=== PATIENT | female | born 1985 | race Caucasian/White ===

== ENCOUNTER 2023-07-21 20:37 | Emergency (ER) | payer MEDICAID ==
[2023-07-21] MEDS ORDERED: Ketorolac 60 MG/2 ML SDV IM ONE (21:08)
[2023-07-21 21:19] LABS: BASOPHILS ABSOLUTE AUTO 0.05 K/uL (0.02-0.10); BASOPHILS PERCENT AUTO 0.5 % (0.0-0.5); EOSINOPHILS ABSOLUTE AUTO 0.24 K/uL (0.04-0.40); EOSINOPHILS PERCENT AUTO 2.2 % (1.0-5.0); HEMATOCRIT 37.5 % (37.0-47.0); HEMOGLOBIN 12.2 g/dL (11.5-16.5); LYMPHOCYTES ABSOLUTE AUTO 3.38 K/uL (1.50-4.00); LYMPHOCYTES PERCENT AUTO 31.3 % (20.0-40.0); MEAN CORPUSCULAR HEMOGLOBIN 33.6 pg (27.0-32.0); MEAN CORPUSCULAR HGB CONC 32.5 g/dL (31.0-35.0); MEAN CORPUSCULAR VOLUME 103 fL (76-96); MEAN PLATELET VOLUME 9.5 fL (6.0-10.0); MONOCYTES ABSOLUTE AUTO 0.67 K/uL (0.20-0.80); MONOCYTES PERCENT AUTO 6.2 % (3.0-10.0); NEUTROPHILS ABSOLUTE AUTO 6.45 K/uL (2.00-7.50); NEUTROPHILS PERCENT AUTO 59.8 % (45.0-70.0); PLATELET COUNT,PLT 374 K/uL (150-500); RED BLOOD CELL COUNT 3.63 M/uL (3.80-5.80); RED CELL DISTRIBUTION WIDTH 13.8 % (11.0-16.0); WHITE BLOOD CELL COUNT,WBC 10.8 K/uL (4.0-11.0)
[2023-07-21 21:33] LABS: ANION GAP 15.6 mmol/L (5.0-15.0); CALCIUM 8.6 mg/dL (8.5-10.1); CARBON DIOXIDE,CO2 27.1 mmol/L (21.0-32.0); CREATININE 0.99 mg/dL (0.55-1.02); EST CRCL DRUG DOSING (CG) 63.11 mL/min; POTASSIUM,K 3.7 mmol/L (3.5-5.1)
[2023-07-21] MEDS ORDERED: Ketorolac 60 MG/2 ML SDV ONE (21:34)
[2023-07-21] MEDS ORDERED: predniSONE 10 MG Tab ONE (22:00)
== END 2023-07-21 22:10 | disposition home or self-care (01) ==
LOC: LB.ED 20:37
DX: M25.572 Pain in left ankle and joints of left foot (principal); M25.472 Effusion, left ankle; I10 Essential (primary) hypertension; K21.9 Gastro-esophageal reflux disease without esophagitis; J45.909 Unspecified asthma, uncomplicated; Z86.16 Personal history of COVID-19; Z88.4 Allergy status to anesthetic agent; Z88.5 Allergy status to narcotic agent; Z88.1 Allergy status to other antibiotic agents; Z88.8 Allergy status to other drugs, medicaments and biological substances; Z79.899 Other long term (current) drug therapy
CPT/HCPCS: 36415; 73600-LT; 80048; 84550; 85025; 86140; 96372; 99283; J1885; J7512

== ENCOUNTER 2023-09-12 16:42 | Emergency (ER) | payer MEDICAID ==
[2023-09-12] MEDS ORDERED: Sodium Chloride 0.9% 10 ML Syringe FLUSH PRN (16:48)
[2023-09-12 17:04] LABS: BASOPHILS ABSOLUTE AUTO 0.03 K/uL (0.02-0.10); BASOPHILS PERCENT AUTO 0.3 % (0.0-0.5); EOSINOPHILS ABSOLUTE AUTO 0.13 K/uL (0.04-0.40); EOSINOPHILS PERCENT AUTO 1.3 % (1.0-5.0); HEMATOCRIT 38.6 % (37.0-47.0); LYMPHOCYTES PERCENT AUTO 44.9 % (20.0-40.0); MEAN CORPUSCULAR HEMOGLOBIN 33.2 pg (27.0-32.0); MEAN CORPUSCULAR HGB CONC 33.7 g/dL (31.0-35.0); MEAN CORPUSCULAR VOLUME 99 fL (76-96); MEAN PLATELET VOLUME 9.2 fL (6.0-10.0); MONOCYTES ABSOLUTE AUTO 0.73 K/uL (0.20-0.80); MONOCYTES PERCENT AUTO 7.4 % (3.0-10.0); NEUTROPHILS ABSOLUTE AUTO 4.51 K/uL (2.00-7.50); NEUTROPHILS PERCENT AUTO 46.1 % (45.0-70.0); PLATELET COUNT,PLT 321 K/uL (150-500); RED BLOOD CELL COUNT 3.91 M/uL (3.80-5.80); RED CELL DISTRIBUTION WIDTH 12.4 % (11.0-16.0); WHITE BLOOD CELL COUNT,WBC 9.8 K/uL (4.0-11.0)
[2023-09-12 17:25] LABS: A/G RATIO 0.9 (0.8-2.0); ALBUMIN 3.2 g/dL (3.4-5.0); ANION GAP 13.6 mmol/L (5.0-15.0); BILIRUBIN TOTAL 0.3 mg/dL (0.0-1.0); BUN/CREATININE RATIO 5.2 (6-25); CALCIUM 8.9 mg/dL (8.5-10.1); CARBON DIOXIDE,CO2 27.1 mmol/L (21.0-32.0); CREATININE 0.96 mg/dL (0.55-1.02); EST CRCL DRUG DOSING (CG) 65.08 mL/min; MAGNESIUM 1.9 mg/dL (1.8-2.4); POTASSIUM,K 3.7 mmol/L (3.5-5.1); PROTEIN TOTAL,TP 6.6 g/dL (6.4-8.2)
[2023-09-12 17:44] LABS: APPEARANCE,URINE CLEAR (CLEAR); BILIRUBIN,URINE NEGATIVE (NEGATIVE); COLOR,URINE YELLOW; GLUCOSE,URINE NEGATIVE (NEGATIVE); KETONES,URINE NEGATIVE (NEGATIVE); LEUKOCYTE ESTERASE,URINE NEGATIVE (NEGATIVE); NITRITE,URINE NEGATIVE (NEGATIVE); OCCULT BLOOD,URINE NEGATIVE (NEGATIVE); PROTEIN,URINE NEGATIVE (NEGATIVE); UROBILINOGEN,URINE 0.2 E.U./dL (0.2-1.0)
[2023-09-12] MEDS: Acetaminophen 500 MG Tab PO ONE (17:48)
[2023-09-12 17:49] LABS: AMPHETAMINES SCREEN, URINE NEGATIVE (NEGATIVE); BARBITURATE SCREEN,URINE NEGATIVE (NEGATIVE); BENZODIAZEPINES SCREEN,URINE NEGATIVE (NEGATIVE); METHADONE SCREEN, URINE NEGATIVE (NEGATIVE); METHAMPHETAMINES SCREEN, URINE NEGATIVE (NEGATIVE); OXYCODONE SCREEN,URINE NEGATIVE (NEGATIVE); THC SCREEN,URINE 50 NG/ML NEGATIVE (NEGATIVE)
[2023-09-12] MEDS: Acetaminophen 500 MG Tab ONE (18:05)
== END 2023-09-12 18:07 | disposition home or self-care (01) ==
LOC: LB.ED 16:42
DX: F44.5 Conversion disorder with seizures or convulsions (principal); I10 Essential (primary) hypertension; K21.9 Gastro-esophageal reflux disease without esophagitis; Z88.8 Allergy status to other drugs, medicaments and biological substances; Z79.899 Other long term (current) drug therapy; Z86.16 Personal history of COVID-19; Z88.1 Allergy status to other antibiotic agents; Z88.4 Allergy status to anesthetic agent
CPT/HCPCS: 36415; 51701; 80053; 80307; 81003; 83735; 85025; 99285; A9270-GY; C1758

== ENCOUNTER 2023-10-25 17:21 | Emergency (ER) | payer MEDICAID ==
[2023-10-25] MEDS: Diazepam 5 MG Tab PRN ×2 (17:25→17:30)
[2023-10-25 17:45] LABS: BASOPHILS ABSOLUTE AUTO 0.05 K/uL (0.02-0.10); BASOPHILS PERCENT AUTO 0.4 % (0.0-0.5); EOSINOPHILS ABSOLUTE AUTO 0.26 K/uL (0.04-0.40); EOSINOPHILS PERCENT AUTO 2.1 % (1.0-5.0); HEMOGLOBIN 12.6 g/dL (11.5-16.5); LYMPHOCYTES ABSOLUTE AUTO 4.77 K/uL (1.50-4.00); LYMPHOCYTES PERCENT AUTO 38.8 % (20.0-40.0); MEAN CORPUSCULAR HEMOGLOBIN 33.4 pg (27.0-32.0); MEAN CORPUSCULAR HGB CONC 33.2 g/dL (31.0-35.0); MEAN CORPUSCULAR VOLUME 101 fL (76-96); MEAN PLATELET VOLUME 10.1 fL (6.0-10.0); MONOCYTES ABSOLUTE AUTO 1.13 K/uL (0.20-0.80); MONOCYTES PERCENT AUTO 9.2 % (3.0-10.0); NEUTROPHILS ABSOLUTE AUTO 6.08 K/uL (2.00-7.50); NEUTROPHILS PERCENT AUTO 49.5 % (45.0-70.0); PLATELET COUNT,PLT 345 K/uL (150-500); RED BLOOD CELL COUNT 3.77 M/uL (3.80-5.80); RED CELL DISTRIBUTION WIDTH 13.4 % (11.0-16.0); WHITE BLOOD CELL COUNT,WBC 12.3 K/uL (4.0-11.0)
[2023-10-25] MEDS ORDERED: Diazepam 5 MG Tab PO ONE (17:45)
[2023-10-25] MEDS ORDERED: Sodium Chloride 0.9% 1,000 ML IV ONE (17:49)
[2023-10-25 18:04] LABS: ALANINE AMINOTRANSFERASE,ALT 34 U/L (12-78); ALBUMIN 3.4 g/dL (3.4-5.0); ALKALINE PHOSPHATASE 102 U/L (46-116); ANION GAP 18.1 mmol/L (5.0-15.0); ASPARTATE AMNIOTRANSFERASE,AST 40 U/L (15-37); BILIRUBIN TOTAL 0.2 mg/dL (0.0-1.0); BLOOD UREA NITROGEN,BUN 4 mg/dL (8-26); BUN/CREATININE RATIO 3.6 (6-25); CALCIUM 8.7 mg/dL (8.5-10.1); CARBON DIOXIDE,CO2 20.7 mmol/L (21.0-32.0); CHLORIDE,CL 102 mmol/L (98-107); CREATININE 1.11 mg/dL (0.55-1.02); ESTIMATED GFR 65 mL/min (>60); GLUCOSE RANDOM 98 mg/dL (74-100); POTASSIUM,K 3.8 mmol/L (3.5-5.1); PROTEIN TOTAL,TP 6.7 g/dL (6.4-8.2); SODIUM,NA 137 mmol/L (136-145)
[2023-10-25 18:11] LABS: APPEARANCE,URINE SLIGHTLY CLOUDY (CLEAR); BILIRUBIN,URINE NEGATIVE (NEGATIVE); COLOR,URINE YELLOW; GLUCOSE,URINE NEGATIVE (NEGATIVE); KETONES,URINE NEGATIVE (NEGATIVE); LEUKOCYTE ESTERASE,URINE SMALL (NEGATIVE); NITRITE,URINE NEGATIVE (NEGATIVE); OCCULT BLOOD,URINE NEGATIVE (NEGATIVE); PH,URINE 6.5 (5.0-8.0); PROTEIN,URINE NEGATIVE (NEGATIVE); UROBILINOGEN,URINE 0.2 E.U./dL (0.2-1.0)
[2023-10-25 18:16] LABS: RBC,URINE NOT SEEN /HPF
[2023-10-25 18:17] LABS: AMPHETAMINES SCREEN, URINE NEGATIVE (NEGATIVE); BACTERIA,URINE MANY /HPF; BARBITURATE SCREEN,URINE NEGATIVE (NEGATIVE); BENZODIAZEPINES SCREEN,URINE NEGATIVE (NEGATIVE); METHADONE SCREEN, URINE NEGATIVE (NEGATIVE); METHAMPHETAMINES SCREEN, URINE NEGATIVE (NEGATIVE); OXYCODONE SCREEN,URINE NEGATIVE (NEGATIVE); SQUAMOUS EPITHELIAL CELLS,UR FEW /HPF; THC SCREEN,URINE 50 NG/ML NEGATIVE (NEGATIVE); WBC CLUMPS,URINE OCCASIONAL /HPF
[2023-10-25] MEDS ORDERED: Diazepam 5 MG Tab PRN (18:40)
[2023-10-25] MEDS ORDERED: Ciprofloxacin 250 MG Tab ONE (18:45)
== END 2023-10-25 18:55 | disposition home or self-care (01) ==
LOC: LB.ED 17:21
DX: F44.4 Conversion disorder with motor symptom or deficit (principal); I10 Essential (primary) hypertension; K21.9 Gastro-esophageal reflux disease without esophagitis; Z88.5 Allergy status to narcotic agent; Z88.8 Allergy status to other drugs, medicaments and biological substances; Z79.899 Other long term (current) drug therapy; Z86.16 Personal history of COVID-19
CPT/HCPCS: 36415; 80053; 80307; 81001; 85025; 96360; 99284-25; A9270-GY; C1758; J7030

== ENCOUNTER 2023-10-27 14:36 | Emergency (ER) | payer MEDICAID ==
[~2023-10-27 14:36] MED LIST: Sodium Chloride 0.9% 10 ML Syringe FLUSH PRN
[2023-10-27] MEDS: diazePAM 5 MG/ML MDV IM ONE ×2 (14:38→14:56)
[2023-10-27 15:18] LABS: BASOPHILS ABSOLUTE AUTO 0.03 K/uL (0.02-0.10); BASOPHILS PERCENT AUTO 0.3 % (0.0-0.5); EOSINOPHILS ABSOLUTE AUTO 0.16 K/uL (0.04-0.40); EOSINOPHILS PERCENT AUTO 1.6 % (1.0-5.0); HEMATOCRIT 35.3 % (37.0-47.0); HEMOGLOBIN 11.8 g/dL (11.5-16.5); LYMPHOCYTES PERCENT AUTO 43.2 % (20.0-40.0); MEAN CORPUSCULAR HEMOGLOBIN 33.8 pg (27.0-32.0); MEAN CORPUSCULAR HGB CONC 33.4 g/dL (31.0-35.0); MEAN CORPUSCULAR VOLUME 101 fL (76-96); MEAN PLATELET VOLUME 9.9 fL (6.0-10.0); MONOCYTES ABSOLUTE AUTO 0.83 K/uL (0.20-0.80); MONOCYTES PERCENT AUTO 8.5 % (3.0-10.0); NEUTROPHILS PERCENT AUTO 46.4 % (45.0-70.0); PLATELET COUNT,PLT 323 K/uL (150-500); RED BLOOD CELL COUNT 3.49 M/uL (3.80-5.80); RED CELL DISTRIBUTION WIDTH 13.3 % (11.0-16.0); WHITE BLOOD CELL COUNT,WBC 9.7 K/uL (4.0-11.0)
[2023-10-27 15:38] LABS: ALANINE AMINOTRANSFERASE,ALT 30 U/L (12-78); ALBUMIN 3.2 g/dL (3.4-5.0); ALKALINE PHOSPHATASE 90 U/L (46-116); ASPARTATE AMNIOTRANSFERASE,AST 34 U/L (15-37); BILIRUBIN TOTAL 0.3 mg/dL (0.0-1.0); BLOOD UREA NITROGEN,BUN 2 mg/dL (8-26); BUN/CREATININE RATIO 2.2 (6-25); CALCIUM 8.6 mg/dL (8.5-10.1); CARBON DIOXIDE,CO2 21.5 mmol/L (21.0-32.0); CHLORIDE,CL 101 mmol/L (98-107); CREATININE 0.93 mg/dL (0.55-1.02); ESTIMATED GFR 80 mL/min (>60); GLUCOSE RANDOM 70 mg/dL (74-100); POTASSIUM,K 3.5 mmol/L (3.5-5.1); PROTEIN TOTAL,TP 6.5 g/dL (6.4-8.2); SODIUM,NA 136 mmol/L (136-145)
[2023-10-27] MEDS ORDERED: LORazepam 2 MG/ML SDV IVPUSH PRN (15:46)
[2023-10-27] MEDS ORDERED: LORazepam 2 MG/ML SDV ONE (16:00)
[2023-10-27] MEDS ORDERED: LORazepam 2 MG/ML SDV IVPUSH ONE (16:00)
[2023-10-27] MEDS ORDERED: SODIUM CHLORIDE 0.9% IV ONE (16:15)
[2023-10-27] MEDS ORDERED: LEVETIRACETAM IV ONE (16:15)
[2023-10-27] MEDS ORDERED: levETIRAcetam 4,500 MG in Sodium Chloride 0.9% 100 ML IV ONE (16:15)
[2023-10-27] MEDS ORDERED: LORazepam 1 MG Tab ONE ×2 (23:00→23:06)
== END 2023-10-27 23:28 | disposition home or self-care (01) ==
LOC: LB.ED 14:36
DX: R56.9 Unspecified convulsions (principal); K21.9 Gastro-esophageal reflux disease without esophagitis; J45.909 Unspecified asthma, uncomplicated; F17.210 Nicotine dependence, cigarettes, uncomplicated; Z86.16 Personal history of COVID-19; Z79.899 Other long term (current) drug therapy; Z88.8 Allergy status to other drugs, medicaments and biological substances; Z88.1 Allergy status to other antibiotic agents; Z88.4 Allergy status to anesthetic agent
CPT/HCPCS: 36415; 70450; 80053; 80307; 85025; 96365; 96372; 96375; 99285-25; A9270-GY; J1953; J2060; J3360; J3490

== ENCOUNTER 2023-10-28 16:51 | Emergency (ER) | payer MEDICAID ==
[2023-10-28] MEDS: Acetaminophen 325 MG Tab PO ONE (17:40)
[2023-10-28] MEDS: Ondansetron 4 MG Tab.DIS PO ONE (17:41)
[2023-10-28 17:47] LABS: AMPHETAMINES SCREEN, URINE POSITIVE (NEGATIVE); BENZODIAZEPINES SCREEN,URINE POSITIVE (NEGATIVE); METHAMPHETAMINES SCREEN, URINE NEGATIVE (NEGATIVE)
[2023-10-28 17:48] LABS: BARBITURATE SCREEN,URINE NEGATIVE (NEGATIVE); BASOPHILS ABSOLUTE AUTO 0.04 K/uL (0.02-0.10); BASOPHILS PERCENT AUTO 0.4 % (0.0-0.5); EOSINOPHILS ABSOLUTE AUTO 0.06 K/uL (0.04-0.40); EOSINOPHILS PERCENT AUTO 0.6 % (1.0-5.0); HEMATOCRIT 35.7 % (37.0-47.0); HEMOGLOBIN 11.9 g/dL (11.5-16.5); LYMPHOCYTES ABSOLUTE AUTO 3.86 K/uL (1.50-4.00); LYMPHOCYTES PERCENT AUTO 37.9 % (20.0-40.0); MEAN CORPUSCULAR HEMOGLOBIN 33.2 pg (27.0-32.0); MEAN CORPUSCULAR HGB CONC 33.3 g/dL (31.0-35.0); MEAN CORPUSCULAR VOLUME 100 fL (76-96); MEAN PLATELET VOLUME 9.8 fL (6.0-10.0); METHADONE SCREEN, URINE NEGATIVE (NEGATIVE); MONOCYTES ABSOLUTE AUTO 0.72 K/uL (0.20-0.80); MONOCYTES PERCENT AUTO 7.1 % (3.0-10.0); NEUTROPHILS ABSOLUTE AUTO 5.51 K/uL (2.00-7.50); OXYCODONE SCREEN,URINE NEGATIVE (NEGATIVE); PLATELET COUNT,PLT 326 K/uL (150-500); RED BLOOD CELL COUNT 3.58 M/uL (3.80-5.80); RED CELL DISTRIBUTION WIDTH 13.3 % (11.0-16.0); THC SCREEN,URINE 50 NG/ML NEGATIVE (NEGATIVE); WHITE BLOOD CELL COUNT,WBC 10.2 K/uL (4.0-11.0)
[2023-10-28] MEDS: Acetaminophen 325 MG Tab ONE (17:53)
[2023-10-28] MEDS: Ondansetron 4 MG Tab.DIS ONE (17:54)
[2023-10-28 18:01] LABS: MAGNESIUM 1.6 mg/dL (1.8-2.4); PHOSPHORUS 2.4 mg/dL (2.5-4.9)
[2023-10-28 18:08] LABS: ALBUMIN 3.2 g/dL (3.4-5.0); ANION GAP 15.8 mmol/L (5.0-15.0); BILIRUBIN TOTAL 0.5 mg/dL (0.0-1.0); BUN/CREATININE RATIO 5.7 (6-25); CALCIUM 8.3 mg/dL (8.5-10.1); CARBON DIOXIDE,CO2 23.8 mmol/L (21.0-32.0); CREATININE 1.05 mg/dL (0.55-1.02); EST CRCL DRUG DOSING (CG) 59.5 mL/min; POTASSIUM,K 3.6 mmol/L (3.5-5.1); PROTEIN TOTAL,TP 6.5 g/dL (6.4-8.2)
== END 2023-10-28 19:20 | disposition left against medical advice (07) ==
LOC: LB.ED 16:51
DX: F44.5 Conversion disorder with seizures or convulsions (principal); K21.9 Gastro-esophageal reflux disease without esophagitis; J45.909 Unspecified asthma, uncomplicated; Z79.899 Other long term (current) drug therapy; Z88.1 Allergy status to other antibiotic agents; Z88.8 Allergy status to other drugs, medicaments and biological substances; Z88.7 Allergy status to serum and vaccine
CPT/HCPCS: 36415; 80053; 80307; 83735; 84100; 85025; 99284; A9270-GY; Q0162

== ENCOUNTER 2023-11-26 20:35 | Emergency (ER) | payer MEDICAID ==
[2023-11-26] MEDS ORDERED: Sodium Chloride 0.9% 10 ML Syringe FLUSH PRN (20:48)
[2023-11-26] MEDS: LORazepam 2 MG/ML SDV IVPUSH ONE (21:31)
[2023-11-26] MEDS: levETIRAcetam 500 MG in Sodium Chloride 0.9% 100 ML IV ONE (21:34)
[2023-11-26 21:39] LABS: HEMATOCRIT 36.4 % (37.0-47.0); HEMOGLOBIN 12.2 g/dL (11.5-16.5); MEAN CORPUSCULAR HEMOGLOBIN 33.2 pg (27.0-32.0); MEAN CORPUSCULAR HGB CONC 33.5 g/dL (31.0-35.0); MEAN PLATELET VOLUME 9.7 fL (6.0-10.0); RED BLOOD CELL COUNT 3.67 M/uL (3.80-5.80); RED CELL DISTRIBUTION WIDTH 12.9 % (11.0-16.0); WHITE BLOOD CELL COUNT,WBC 9.5 K/uL (4.0-11.0)
[2023-11-26 21:53] LABS: A/G RATIO 1.1 (0.8-2.0); ALBUMIN 3.3 g/dL (3.4-5.0); ANION GAP 11.4 mmol/L (5.0-15.0); BILIRUBIN TOTAL 0.5 mg/dL (0.0-1.0); BUN/CREATININE RATIO 4.9 (6-25); CALCIUM 8.1 mg/dL (8.5-10.1); CARBON DIOXIDE,CO2 27.3 mmol/L (21.0-32.0); CREATININE 0.82 mg/dL (0.55-1.02); MAGNESIUM 1.8 mg/dL (1.8-2.4); PHOSPHORUS 3.1 mg/dL (2.5-4.9); PROTEIN TOTAL,TP 6.4 g/dL (6.4-8.2)
[2023-11-26] MEDS: Sodium Chloride 0.9% 1,000 ML IV SCH (21:55)
[2023-11-26] MEDS: levETIRAcetam 500 MG/5 ML SDV ONE (21:56)
[2023-11-26] MEDS: LORazepam 2 MG/ML SDV ONE (21:56)
[2023-11-26 22:05] LABS: EST CRCL DRUG DOSING (CG) 76.19 mL/min
[2023-11-26 22:07] LABS: POTASSIUM,K 2.7 mmol/L (3.5-5.1)
[2023-11-26] MEDS: Potassium Chloride Riders 10 MEQ in Premix Bag 1 BAG IV ONE (23:14)
[2023-11-26 23:19] LABS: AMPHETAMINES SCREEN, URINE NEGATIVE (NEGATIVE); BARBITURATE SCREEN,URINE NEGATIVE (NEGATIVE); BENZODIAZEPINES SCREEN,URINE NEGATIVE (NEGATIVE); METHADONE SCREEN, URINE NEGATIVE (NEGATIVE); METHAMPHETAMINES SCREEN, URINE NEGATIVE (NEGATIVE); OXYCODONE SCREEN,URINE NEGATIVE (NEGATIVE); THC SCREEN,URINE 50 NG/ML NEGATIVE (NEGATIVE)
[2023-11-26] MEDS: Potassium Chloride Riders 50 ML ONE (23:45)
[2023-11-27] MEDS: NS + KCl 20mEq/L 1,000 ML IV SCH (00:16)
[2023-11-27 07:54] LABS: ANION GAP 8.4 mmol/L (5.0-15.0); BUN/CREATININE RATIO 3.9 (6-25); CALCIUM 7.5 mg/dL (8.5-10.1); CARBON DIOXIDE,CO2 26.7 mmol/L (21.0-32.0); CREATININE 0.76 mg/dL (0.55-1.02); EST CRCL DRUG DOSING (CG) 82.21 mL/min; POTASSIUM,K 4.1 mmol/L (3.5-5.1)
== END 2023-11-27 08:55 | disposition home or self-care (01) ==
LOC: LB.ED 20:45
DX: G40.909 Epilepsy, unspecified, not intractable, without status epilepticus (principal); E87.6 Hypokalemia; I10 Essential (primary) hypertension; K21.9 Gastro-esophageal reflux disease without esophagitis; J45.909 Unspecified asthma, uncomplicated; Z86.16 Personal history of COVID-19; Z79.899 Other long term (current) drug therapy; Z88.1 Allergy status to other antibiotic agents; Z88.8 Allergy status to other drugs, medicaments and biological substances
CPT/HCPCS: 36415; 70450; 80048; 80053; 80307; 83735; 84100; 85027; 96361; 96365; 96366; 96367; 96375; 99284; 99284-25; A0425; A0429; J1953; J2060; J3480; J3490; J7030

== ENCOUNTER 2023-12-12 18:19 | Emergency (ER) | payer MEDICAID ==
[2023-12-12] MEDS: Ondansetron 4 MG Tab.DIS PO PRN (18:28)
[2023-12-12] MEDS ORDERED: Sodium Chloride 0.9% 10 ML Syringe FLUSH PRN (18:33)
[2023-12-12] MEDS: Sodium Chloride 0.9% 1,000 ML IV SCH (18:50)
[2023-12-12 19:03] LABS: HEMATOCRIT 40.2 % (37.0-47.0); HEMOGLOBIN 13.6 g/dL (11.5-16.5); MEAN CORPUSCULAR HEMOGLOBIN 33.7 pg (27.0-32.0); MEAN CORPUSCULAR HGB CONC 33.8 g/dL (31.0-35.0); RED BLOOD CELL COUNT 4.04 M/uL (3.80-5.80); RED CELL DISTRIBUTION WIDTH 12.5 % (11.0-16.0)
[2023-12-12] MEDS: levETIRAcetam 1,000 MG in Sodium Chloride 0.9% 100 ML IV ONE (19:11)
[2023-12-12 19:12] LABS: ALBUMIN 3.6 g/dL (3.4-5.0); ANION GAP 14.9 mmol/L (5.0-15.0); BILIRUBIN TOTAL 0.3 mg/dL (0.0-1.0); CALCIUM 8.9 mg/dL (8.5-10.1); CARBON DIOXIDE,CO2 25.7 mmol/L (21.0-32.0); CREATININE 0.78 mg/dL (0.55-1.02); EST CRCL DRUG DOSING (CG) 80.1 mL/min; MAGNESIUM 1.9 mg/dL (1.8-2.4); PHOSPHORUS 2.3 mg/dL (2.5-4.9); POTASSIUM,K 3.6 mmol/L (3.5-5.1); PROTEIN TOTAL,TP 7.2 g/dL (6.4-8.2)
[2023-12-12 19:20] LABS: APPEARANCE,URINE CLEAR (CLEAR); BILIRUBIN,URINE SMALL (NEGATIVE); COLOR,URINE YELLOW; GLUCOSE,URINE NEGATIVE (NEGATIVE); KETONES,URINE NEGATIVE (NEGATIVE); LEUKOCYTE ESTERASE,URINE NEGATIVE (NEGATIVE); NITRITE,URINE NEGATIVE (NEGATIVE); OCCULT BLOOD,URINE NEGATIVE (NEGATIVE); PROTEIN,URINE TRACE mg/dL (NEGATIVE); UROBILINOGEN,URINE 0.2 E.U./dL (0.2-1.0)
[2023-12-12 19:25] LABS: AMPHETAMINES SCREEN, URINE NEGATIVE (NEGATIVE); BARBITURATE SCREEN,URINE NEGATIVE (NEGATIVE); BENZODIAZEPINES SCREEN,URINE POSITIVE (NEGATIVE); EPITHELIAL CELLS,URINE MODERATE /HPF; METHAMPHETAMINES SCREEN, URINE NEGATIVE (NEGATIVE); RBC,URINE 0-5 /HPF; WBC,URINE NOT SEEN /HPF
[2023-12-12 19:26] LABS: METHADONE SCREEN, URINE NEGATIVE (NEGATIVE); OXYCODONE SCREEN,URINE NEGATIVE (NEGATIVE); THC SCREEN,URINE 50 NG/ML NEGATIVE (NEGATIVE)
[2023-12-12] MEDS: Morphine 4 MG/ML VIAL IVPUSH ONE (19:33)
[2023-12-12] MEDS: LORazepam 2 MG/ML SDV IVPUSH ONE (19:34)
[2023-12-12] MEDS: Lactated Ringers 1,000 ML IV SCH (20:21)
[2023-12-12] MEDS ORDERED: Ondansetron 4 MG Tab.DIS ONE (22:00)
== END 2023-12-12 22:24 | disposition home or self-care (01) ==
LOC: LB.ED 18:19
DX: R10.9 Unspecified abdominal pain (principal); R56.9 Unspecified convulsions; I10 Essential (primary) hypertension; J45.909 Unspecified asthma, uncomplicated; K21.9 Gastro-esophageal reflux disease without esophagitis; Z86.16 Personal history of COVID-19; Z79.899 Other long term (current) drug therapy; Z88.8 Allergy status to other drugs, medicaments and biological substances; Z88.4 Allergy status to anesthetic agent
CPT/HCPCS: 36415; 74176; 80053; 80307; 81001; 83735; 84100; 85027; 96361; 96365; 96375; 99284; 99284-25; A0425; A0429; J1953; J2060; J2270; J3490; J7030; J7120; Q0162

== ENCOUNTER 2023-12-16 21:35 | Emergency (ER) | payer MEDICAID ==
[2023-12-16] MEDS: levETIRAcetam 1,000 MG in Sodium Chloride 0.9% 100 ML IV ONE (22:13)
[2023-12-16] MEDS: Sodium Chloride 0.9% 1,000 ML IV SCH (22:38)
[2023-12-16] MEDS: Prochlorperazine 10 MG/2 ML SDV IVPUSH ONE (23:20)
[2023-12-16 23:46] LABS: HEMATOCRIT 41.7 % (37.0-47.0); HEMOGLOBIN 13.5 g/dL (11.5-16.5); MEAN CORPUSCULAR HEMOGLOBIN 34.2 pg (27.0-32.0); MEAN CORPUSCULAR HGB CONC 32.4 g/dL (31.0-35.0); MEAN PLATELET VOLUME 10.5 fL (6.0-10.0); RED BLOOD CELL COUNT 3.95 M/uL (3.80-5.80); RED CELL DISTRIBUTION WIDTH 12.4 % (11.0-16.0); WHITE BLOOD CELL COUNT,WBC 10.8 K/uL (4.0-11.0)
[2023-12-16 23:52] LABS: AMPHETAMINES SCREEN, URINE NEGATIVE (NEGATIVE); METHAMPHETAMINES SCREEN, URINE NEGATIVE (NEGATIVE)
[2023-12-16 23:53] LABS: BARBITURATE SCREEN,URINE NEGATIVE (NEGATIVE); BENZODIAZEPINES SCREEN,URINE NEGATIVE (NEGATIVE); METHADONE SCREEN, URINE NEGATIVE (NEGATIVE); OXYCODONE SCREEN,URINE NEGATIVE (NEGATIVE); THC SCREEN,URINE 50 NG/ML NEGATIVE (NEGATIVE)
[2023-12-16 23:59] LABS: A/G RATIO 1.1 (0.8-2.0); ALBUMIN 3.5 g/dL (3.4-5.0); BILIRUBIN TOTAL 0.2 mg/dL (0.0-1.0); BUN/CREATININE RATIO 2.9 (6-25); CALCIUM 8.2 mg/dL (8.5-10.1); CARBON DIOXIDE,CO2 26.4 mmol/L (21.0-32.0); CREATININE 0.69 mg/dL (0.55-1.02); EST CRCL DRUG DOSING (CG) 90.55 mL/min; POTASSIUM,K 3.4 mmol/L (3.5-5.1); PROTEIN TOTAL,TP 6.8 g/dL (6.4-8.2)
[2023-12-17] MEDS: NS + KCl 20mEq/L 1,000 ML IV SCH (00:38)
[2023-12-17] MEDS: Diazepam 5 MG Tab PO ONE (00:54)
[2023-12-17] MEDS: Diazepam 5 MG Tab ONE (02:15)
== END 2023-12-17 08:07 | disposition home or self-care (01) ==
LOC: SUPCPDRO 21:35 → LB.ED 21:35
DX: G40.909 Epilepsy, unspecified, not intractable, without status epilepticus (principal); I10 Essential (primary) hypertension; J45.909 Unspecified asthma, uncomplicated; K21.9 Gastro-esophageal reflux disease without esophagitis; Z86.16 Personal history of COVID-19; Z79.899 Other long term (current) drug therapy; Z88.1 Allergy status to other antibiotic agents; Z88.8 Allergy status to other drugs, medicaments and biological substances
CPT/HCPCS: 36415; 80053; 80307; 85027; 96361; 96365; 96366; 96375; 99284; A0425; A0429; A9270; J0780; J1953; J3480; J3490; J7030

== ENCOUNTER 2023-12-28 14:52 | Emergency (ER) | payer MEDICAID ==
[2023-12-28] MEDS ORDERED: Sodium Chloride 0.9% 1,000 ML IV SCH (15:30)
== END 2023-12-28 15:31 | disposition left against medical advice (07) ==
LOC: LB.ED 14:52
DX: R56.9 Unspecified convulsions (principal); J45.909 Unspecified asthma, uncomplicated; K21.9 Gastro-esophageal reflux disease without esophagitis; Z79.899 Other long term (current) drug therapy
CPT/HCPCS: 99284; A0425; A0429

== ENCOUNTER 2024-01-23 22:49 | Emergency (ER) | payer MEDICAID ==
[2024-01-23] MEDS ORDERED: Sodium Chloride 0.9% 10 ML Syringe FLUSH PRN (23:04)
[2024-01-23] MEDS: Ondansetron 4 MG Tab.DIS PO ONE (23:17)
[2024-01-23] MEDS: Prochlorperazine 10 MG/2 ML SDV IVPUSH ONE (23:25)
[2024-01-23 23:32] LABS: HEMATOCRIT 38.2 % (37.0-47.0); HEMOGLOBIN 13.1 g/dL (11.5-16.5); MEAN CORPUSCULAR HEMOGLOBIN 33.3 pg (27.0-32.0); MEAN CORPUSCULAR HGB CONC 34.3 g/dL (31.0-35.0); MEAN PLATELET VOLUME 9.7 fL (6.0-10.0); RED BLOOD CELL COUNT 3.93 M/uL (3.80-5.80); RED CELL DISTRIBUTION WIDTH 12.8 % (11.0-16.0); WHITE BLOOD CELL COUNT,WBC 17.5 K/uL (4.0-11.0)
[2024-01-23] MEDS: Sodium Chloride 0.9% 1,000 ML IV SCH (23:32)
[2024-01-23 23:51] LABS: A/G RATIO 1.3 (0.8-2.0); ALBUMIN 3.8 g/dL (3.4-5.0); ANION GAP 14.9 mmol/L (5.0-15.0); BILIRUBIN TOTAL 0.3 mg/dL (0.0-1.0); BUN/CREATININE RATIO 6.7 (6-25); CALCIUM 8.6 mg/dL (8.5-10.1); CARBON DIOXIDE,CO2 24.7 mmol/L (21.0-32.0); CREATININE 0.75 mg/dL (0.55-1.02); EST CRCL DRUG DOSING (CG) 83.31 mL/min; MAGNESIUM 1.9 mg/dL (1.8-2.4); POTASSIUM,K 3.6 mmol/L (3.5-5.1); PROTEIN TOTAL,TP 6.8 g/dL (6.4-8.2)
[2024-01-24] MEDS: Lactated Ringers 1,000 ML IV SCH (01:05)
[2024-01-24 07:23] LABS: ANION GAP 9.3 mmol/L (5.0-15.0); CALCIUM 8.3 mg/dL (8.5-10.1); CARBON DIOXIDE,CO2 26.9 mmol/L (21.0-32.0); CREATININE 0.51 mg/dL (0.55-1.02); EST CRCL DRUG DOSING (CG) 122.51 mL/min; POTASSIUM,K 4.2 mmol/L (3.5-5.1)
[2024-01-24 07:32] LABS: BUN/CREATININE RATIO 5.9 (6-25)
[2024-01-24 07:40] LABS: HEMATOCRIT 40.1 % (37.0-47.0); HEMOGLOBIN 13.6 g/dL (11.5-16.5); MEAN CORPUSCULAR HEMOGLOBIN 33.3 pg (27.0-32.0); MEAN CORPUSCULAR HGB CONC 33.9 g/dL (31.0-35.0); MEAN PLATELET VOLUME 10.5 fL (6.0-10.0); RED BLOOD CELL COUNT 4.09 M/uL (3.80-5.80); RED CELL DISTRIBUTION WIDTH 13.2 % (11.0-16.0); WHITE BLOOD CELL COUNT,WBC 14.4 K/uL (4.0-11.0)
[2024-01-24] MEDS: Prochlorperazine 10 MG/2 ML SDV IVPUSH ONE (09:30)
[2024-01-26] MEDS: Ondansetron 4 MG/2 ML SDV IVPUSH ONE (08:27)
[2024-01-27 15:19] LABS: LITHIUM, SERUM OR PLASMA 0.7 mmol/L (0.5-1.2)
== END 2024-01-24 09:42 | disposition home or self-care (01) ==
LOC: LB.ED 22:49
DX: T56.891A Toxic effect of other metals, accidental (unintentional), initial encounter (principal); R11.2 Nausea with vomiting, unspecified; I10 Essential (primary) hypertension; K21.9 Gastro-esophageal reflux disease without esophagitis; Z88.1 Allergy status to other antibiotic agents; J45.909 Unspecified asthma, uncomplicated; Z88.5 Allergy status to narcotic agent; Z88.8 Allergy status to other drugs, medicaments and biological substances; Z79.899 Other long term (current) drug therapy; Z86.16 Personal history of COVID-19
CPT/HCPCS: 36415; 80048; 80053; 80178; 83690; 83735; 85027; 96361; 96374; 99284; 99284-25; J0780; J7030; J7120; Q0162

== ENCOUNTER 2024-03-28 16:17 | Emergency (ER) | payer MEDICAID | END 2024-03-28 16:46 | disposition home or self-care (01) | LOC: LB.ED 16:17 | DX: S01.511A Laceration without foreign body of lip, initial encounter (principal); Z88.1 Allergy status to other antibiotic agents; Z88.8 Allergy status to other drugs, medicaments and biological substances; X58.XXXA Exposure to other specified factors, initial encounter | CPT/HCPCS: 99282 ==

== ENCOUNTER 2024-07-01 16:14 | Emergency (ER) | payer SELFPAY ==
[2024-07-01] MEDS: Ondansetron 4 MG/2 ML SDV IVPUSH ONE (16:51)
[2024-07-01 16:55] LABS: BASOPHILS ABSOLUTE AUTO 0.06 K/uL (0.02-0.10); BASOPHILS PERCENT AUTO 0.6 % (0.0-0.5); EOSINOPHILS ABSOLUTE AUTO 0.16 K/uL (0.04-0.40); EOSINOPHILS PERCENT AUTO 1.7 % (1.0-5.0); HEMATOCRIT 40.7 % (37.0-47.0); HEMOGLOBIN 13.7 g/dL (11.5-16.5); LYMPHOCYTES ABSOLUTE AUTO 2.56 K/uL (1.50-4.00); LYMPHOCYTES PERCENT AUTO 27.6 % (20.0-40.0); MEAN CORPUSCULAR HEMOGLOBIN 33.9 pg (27.0-32.0); MEAN CORPUSCULAR HGB CONC 33.7 g/dL (31.0-35.0); MEAN CORPUSCULAR VOLUME 101 fL (76-96); MEAN PLATELET VOLUME 9.9 fL (6.0-10.0); MONOCYTES ABSOLUTE AUTO 0.49 K/uL (0.20-0.80); MONOCYTES PERCENT AUTO 5.3 % (3.0-10.0); NEUTROPHILS ABSOLUTE AUTO 6.01 K/uL (2.00-7.50); NEUTROPHILS PERCENT AUTO 64.8 % (45.0-70.0); PLATELET COUNT,PLT 387 K/uL (150-500); RED BLOOD CELL COUNT 4.04 M/uL (3.80-5.80); WHITE BLOOD CELL COUNT,WBC 9.3 K/uL (4.0-11.0)
[2024-07-01] MEDS: Sodium Chloride 0.9% 1,000 ML IV ONE (17:06)
[2024-07-01 17:29] LABS: A/G RATIO 1.2 (0.8-2.0); ALBUMIN 3.8 g/dL (3.4-5.0); ANION GAP 10.9 mmol/L (5.0-15.0); BILIRUBIN TOTAL 0.3 mg/dL (0.0-1.0); BUN/CREATININE RATIO 6.3 (6-25); CARBON DIOXIDE,CO2 28.7 mmol/L (21.0-32.0); CREATININE 0.95 mg/dL (0.55-1.02); EST CRCL DRUG DOSING (CG) 65.77 mL/min; POTASSIUM,K 3.6 mmol/L (3.5-5.1); PROTEIN TOTAL,TP 7.1 g/dL (6.4-8.2); TSH ULTRASENSITIVE 2.928 uIU/mL (0.358-3.740)
[2024-07-01] MEDS ORDERED: Ondansetron 4 MG Tab.DIS ONE (18:00)
[2024-07-02] MEDS: Ondansetron 4 MG/2 ML SDV ONE (10:26)
== END 2024-07-01 18:05 | disposition home or self-care (01) ==
LOC: LB.ED 16:14
DX: K29.00 Acute gastritis without bleeding (principal); I10 Essential (primary) hypertension; J45.909 Unspecified asthma, uncomplicated; K21.9 Gastro-esophageal reflux disease without esophagitis; E03.9 Hypothyroidism, unspecified; Z79.899 Other long term (current) drug therapy; Z88.1 Allergy status to other antibiotic agents; Z88.5 Allergy status to narcotic agent; Z88.8 Allergy status to other drugs, medicaments and biological substances
CPT/HCPCS: 36415; 74019; 80053; 84443; 85025; 96361; 96374; 99284-25; J2405; J7030; Q0162

== ENCOUNTER 2024-07-30 23:29 | Emergency (ER) | payer MEDICAID ==
[2024-07-31] MEDS: LORazepam 2 MG/ML SDV IVPUSH ONE ×2 (00:01→00:58)
[2024-07-31] MEDS: LORazepam 2 MG/ML SDV ONE ×2 (00:08→00:59)
[2024-07-31] MEDS: levETIRAcetam 500 MG in Sodium Chloride 0.9% 100 ML IV ONE ×2 (00:13→01:09)
[2024-07-31] MEDS: Sodium Chloride 0.9% 10 ML Syringe FLUSH PRN (00:15)
[2024-07-31] MEDS: levETIRAcetam 500 MG/5 ML SDV ONE ×2 (00:15→01:32)
[2024-07-31 00:44] LABS: BASOPHILS ABSOLUTE AUTO 0.07 K/uL (0.02-0.10); BASOPHILS PERCENT AUTO 0.6 % (0.0-0.5); EOSINOPHILS ABSOLUTE AUTO 0.13 K/uL (0.04-0.40); EOSINOPHILS PERCENT AUTO 1.2 % (1.0-5.0); HEMATOCRIT 36.4 % (37.0-47.0); HEMOGLOBIN 12.4 g/dL (11.5-16.5); LYMPHOCYTES ABSOLUTE AUTO 4.67 K/uL (1.50-4.00); LYMPHOCYTES PERCENT AUTO 41.8 % (20.0-40.0); MEAN CORPUSCULAR HGB CONC 34.1 g/dL (31.0-35.0); MEAN CORPUSCULAR VOLUME 100 fL (76-96); MEAN PLATELET VOLUME 9.6 fL (6.0-10.0); MONOCYTES ABSOLUTE AUTO 0.84 K/uL (0.20-0.80); MONOCYTES PERCENT AUTO 7.5 % (3.0-10.0); NEUTROPHILS ABSOLUTE AUTO 5.45 K/uL (2.00-7.50); NEUTROPHILS PERCENT AUTO 48.9 % (45.0-70.0); PLATELET COUNT,PLT 354 K/uL (150-500); RED BLOOD CELL COUNT 3.65 M/uL (3.80-5.80); RED CELL DISTRIBUTION WIDTH 12.2 % (11.0-16.0); WHITE BLOOD CELL COUNT,WBC 11.2 K/uL (4.0-11.0)
[2024-07-31] MEDS: Sodium Chloride 0.9% 1,000 ML IV ONE (01:00)
[2024-07-31 01:01] LABS: APPEARANCE,URINE CLEAR (CLEAR); COLOR,URINE YELLOW; PH,URINE 5.5 (5.0-8.0)
[2024-07-31 01:02] LABS: BILIRUBIN,URINE NEGATIVE (NEGATIVE); GLUCOSE,URINE NEGATIVE (NEGATIVE); KETONES,URINE NEGATIVE (NEGATIVE); LEUKOCYTE ESTERASE,URINE NEGATIVE (NEGATIVE); NITRITE,URINE NEGATIVE (NEGATIVE); OCCULT BLOOD,URINE NEGATIVE (NEGATIVE); PROTEIN,URINE NEGATIVE (NEGATIVE); UROBILINOGEN,URINE 0.2 E.U./dL (0.2-1.0)
[2024-07-31 01:03] LABS: AMPHETAMINES SCREEN, URINE NEGATIVE (NEGATIVE); BARBITURATE SCREEN,URINE NEGATIVE (NEGATIVE); BENZODIAZEPINES SCREEN,URINE NEGATIVE (NEGATIVE); METHADONE SCREEN, URINE NEGATIVE (NEGATIVE); METHAMPHETAMINES SCREEN, URINE NEGATIVE (NEGATIVE); OXYCODONE SCREEN,URINE NEGATIVE (NEGATIVE); THC SCREEN,URINE 50 NG/ML NEGATIVE (NEGATIVE)
[2024-07-31 01:06] LABS: A/G RATIO 1.2 (0.8-2.0); ALBUMIN 3.6 g/dL (3.4-5.0); ANION GAP 16.4 mmol/L (5.0-15.0); BILIRUBIN TOTAL 0.2 mg/dL (0.0-1.0); BUN/CREATININE RATIO 7.5 (6-25); CALCIUM 8.6 mg/dL (8.5-10.1); CARBON DIOXIDE,CO2 24.1 mmol/L (21.0-32.0); CREATININE 1.06 mg/dL (0.55-1.02); EST CRCL DRUG DOSING (CG) 58.36 mL/min; POTASSIUM,K 3.5 mmol/L (3.5-5.1); PROTEIN TOTAL,TP 6.6 g/dL (6.4-8.2)
[2024-07-31 01:16] LABS: INFLUENZA A NAA NEGATIVE (NEGATIVE); INFLUENZA B NAA NEGATIVE (NEGATIVE); RESPIRATORY SYNCYTIAL VIR NAA NEGATIVE (NEGATIVE)
[2024-07-31 01:18] LABS: CORONAVIRUS COVID-19 NAA NEGATIVE (NEGATIVE)
[2024-08-03 20:17] LABS: LITHIUM, SERUM OR PLASMA 0.1 mmol/L (0.5-1.2)
== END 2024-07-31 09:00 | disposition home or self-care (01) ==
LOC: LB.ED 23:29
DX: R56.9 Unspecified convulsions (principal); K21.9 Gastro-esophageal reflux disease without esophagitis; J45.909 Unspecified asthma, uncomplicated; Z79.899 Other long term (current) drug therapy; Z88.7 Allergy status to serum and vaccine; Z88.5 Allergy status to narcotic agent; Z88.8 Allergy status to other drugs, medicaments and biological substances
CPT/HCPCS: 0241U; 36415; 70450; 80053; 80178; 80307; 81003; 85025; 96361; 96365; 96366; 96375; 96376; 99283; 99284-25; J1953; J2060; J3490; J7030

== ENCOUNTER 2024-08-02 17:43 | Emergency (ER) | payer MEDICAID ==
[2024-08-02] MEDS: Sodium Chloride 0.9% 1,000 ML IV SCH (17:58)
[2024-08-02] MEDS: LORazepam 2 MG/ML SDV IVPUSH ONE (17:59)
[2024-08-02 18:34] LABS: BASOPHILS ABSOLUTE AUTO 0.04 K/uL (0.02-0.10); BASOPHILS PERCENT AUTO 0.3 % (0.0-0.5); EOSINOPHILS ABSOLUTE AUTO 0.06 K/uL (0.04-0.40); EOSINOPHILS PERCENT AUTO 0.4 % (1.0-5.0); HEMATOCRIT 37.3 % (37.0-47.0); LYMPHOCYTES ABSOLUTE AUTO 5.37 K/uL (1.50-4.00); LYMPHOCYTES PERCENT AUTO 38.7 % (20.0-40.0); MEAN CORPUSCULAR HEMOGLOBIN 34.3 pg (27.0-32.0); MEAN CORPUSCULAR HGB CONC 34.9 g/dL (31.0-35.0); MEAN CORPUSCULAR VOLUME 98 fL (76-96); MEAN PLATELET VOLUME 9.9 fL (6.0-10.0); MONOCYTES ABSOLUTE AUTO 0.88 K/uL (0.20-0.80); MONOCYTES PERCENT AUTO 6.3 % (3.0-10.0); NEUTROPHILS ABSOLUTE AUTO 7.54 K/uL (2.00-7.50); NEUTROPHILS PERCENT AUTO 54.3 % (45.0-70.0); PLATELET COUNT,PLT 408 K/uL (150-500); RED BLOOD CELL COUNT 3.79 M/uL (3.80-5.80); WHITE BLOOD CELL COUNT,WBC 13.9 K/uL (4.0-11.0)
[2024-08-02 18:45] LABS: A/G RATIO 1.2 (0.8-2.0); ALBUMIN 3.9 g/dL (3.4-5.0); ANION GAP 13.6 mmol/L (5.0-15.0); BILIRUBIN TOTAL 0.2 mg/dL (0.0-1.0); BUN/CREATININE RATIO 5.4 (6-25); CALCIUM 8.9 mg/dL (8.5-10.1); CARBON DIOXIDE,CO2 25.3 mmol/L (21.0-32.0); CREATININE 0.93 mg/dL (0.55-1.02); EST CRCL DRUG DOSING (CG) 66.52 mL/min; PROTEIN TOTAL,TP 7.2 g/dL (6.4-8.2)
[2024-08-02 18:47] LABS: POTASSIUM,K 2.9 mmol/L (3.5-5.1)
[2024-08-02] MEDS: Potassium Chloride 20 MEQ Tab.ER PO ONE (18:58)
[2024-08-02] MEDS: NS with KCl 40mEq 1,000 ML IV SCH (18:59)
[2024-08-02 19:37] LABS: AMPHETAMINES SCREEN, URINE NEGATIVE (NEGATIVE); BARBITURATE SCREEN,URINE NEGATIVE (NEGATIVE); BENZODIAZEPINES SCREEN,URINE NEGATIVE (NEGATIVE); METHADONE SCREEN, URINE NEGATIVE (NEGATIVE); METHAMPHETAMINES SCREEN, URINE NEGATIVE (NEGATIVE); OXYCODONE SCREEN,URINE NEGATIVE (NEGATIVE); THC SCREEN,URINE 50 NG/ML NEGATIVE (NEGATIVE)
[2024-08-02 19:38] LABS: APPEARANCE,URINE CLEAR (CLEAR); BILIRUBIN,URINE NEGATIVE (NEGATIVE); COLOR,URINE YELLOW; GLUCOSE,URINE NEGATIVE (NEGATIVE); KETONES,URINE NEGATIVE (NEGATIVE); PH,URINE 7.5 (5.0-8.0); PROTEIN,URINE NEGATIVE (NEGATIVE)
[2024-08-02 19:39] LABS: LEUKOCYTE ESTERASE,URINE NEGATIVE (NEGATIVE); NITRITE,URINE NEGATIVE (NEGATIVE); OCCULT BLOOD,URINE NEGATIVE (NEGATIVE); UROBILINOGEN,URINE 0.2 E.U./dL (0.2-1.0)
[2024-08-02] MEDS: Iopamidol 612 MG/ML 100 ML Bottle IV PRN (19:41)
[2024-08-02] MEDS: Sodium Chloride 0.9% 50 ML SDV FLUSH SCH (19:41)
== END 2024-08-02 21:20 | disposition home or self-care (01) ==
LOC: LB.ED 17:43
DX: F44.5 Conversion disorder with seizures or convulsions (principal); I10 Essential (primary) hypertension; K21.9 Gastro-esophageal reflux disease without esophagitis; E03.9 Hypothyroidism, unspecified; Z86.16 Personal history of COVID-19; Z79.899 Other long term (current) drug therapy; Z79.51 Long term (current) use of inhaled steroids; Z79.890 Hormone replacement therapy; Z88.1 Allergy status to other antibiotic agents; Z88.5 Allergy status to narcotic agent; Z88.8 Allergy status to other drugs, medicaments and biological substances
CPT/HCPCS: 36415; 70450; 72125; 74177; 80053; 80307; 81003; 85025; 96361; 96365; 96366; 96375; 99284-25; A9270-GY; J2060; J3480; J3490; J7030; Q9967

== ENCOUNTER 2024-10-11 15:04 | Emergency (ER) | payer MEDICAID ==
[2024-10-11] MEDS: Sodium Chloride 0.9% 1,000 ML IV ONE ×2 (15:55→17:05)
[2024-10-11 16:07] LABS: BASOPHILS ABSOLUTE AUTO 0.04 K/uL (0.02-0.10); BASOPHILS PERCENT AUTO 0.4 % (0.0-0.5); EOSINOPHILS ABSOLUTE AUTO 0.23 K/uL (0.04-0.40); EOSINOPHILS PERCENT AUTO 2.1 % (1.0-5.0); HEMATOCRIT 38.1 % (37.0-47.0); HEMOGLOBIN 13.1 g/dL (11.5-16.5); LYMPHOCYTES ABSOLUTE AUTO 2.71 K/uL (1.50-4.00); MEAN CORPUSCULAR HGB CONC 34.4 g/dL (31.0-35.0); MEAN CORPUSCULAR VOLUME 99 fL (76-96); MEAN PLATELET VOLUME 9.8 fL (6.0-10.0); MONOCYTES ABSOLUTE AUTO 0.67 K/uL (0.20-0.80); MONOCYTES PERCENT AUTO 6.2 % (3.0-10.0); NEUTROPHILS ABSOLUTE AUTO 7.19 K/uL (2.00-7.50); NEUTROPHILS PERCENT AUTO 66.3 % (45.0-70.0); PLATELET COUNT,PLT 340 K/uL (150-500); RED BLOOD CELL COUNT 3.85 M/uL (3.80-5.80); RED CELL DISTRIBUTION WIDTH 12.6 % (11.0-16.0); WHITE BLOOD CELL COUNT,WBC 10.8 K/uL (4.0-11.0)
[2024-10-11 16:25] LABS: ALBUMIN 3.5 g/dL (3.4-5.0); ANION GAP 12.5 mmol/L (5.0-15.0); BILIRUBIN TOTAL 0.3 mg/dL (0.0-1.0); BUN/CREATININE RATIO 12.2 (6-25); CALCIUM 8.9 mg/dL (8.5-10.1); CARBON DIOXIDE,CO2 24.9 mmol/L (21.0-32.0); CREATININE 0.74 mg/dL (0.55-1.02); EST CRCL DRUG DOSING (CG) 83.6 mL/min; POTASSIUM,K 3.4 mmol/L (3.5-5.1); PROTEIN TOTAL,TP 6.9 g/dL (6.4-8.2)
[2024-10-11 17:30] LABS: APPEARANCE,URINE CLEAR (CLEAR); BILIRUBIN,URINE NEGATIVE (NEGATIVE); COLOR,URINE YELLOW; GLUCOSE,URINE NEGATIVE (NEGATIVE); KETONES,URINE NEGATIVE (NEGATIVE); LEUKOCYTE ESTERASE,URINE NEGATIVE (NEGATIVE); NITRITE,URINE NEGATIVE (NEGATIVE); OCCULT BLOOD,URINE NEGATIVE (NEGATIVE); PROTEIN,URINE NEGATIVE (NEGATIVE); UROBILINOGEN,URINE 0.2 E.U./dL (0.2-1.0)
[2024-10-11 17:31] LABS: AMORPHOUS SEDIMENT,URINE OCCASIONAL /HPF; RBC,URINE NOT SEEN /HPF; SQUAMOUS EPITHELIAL CELLS,UR MODERATE /HPF; WBC,URINE 0-5 /HPF
== END 2024-10-11 19:32 | disposition home or self-care (01) ==
LOC: LB.ED 15:04
DX: T56.891A Toxic effect of other metals, accidental (unintentional), initial encounter (principal); I10 Essential (primary) hypertension; K21.9 Gastro-esophageal reflux disease without esophagitis; E03.9 Hypothyroidism, unspecified; Z86.16 Personal history of COVID-19; Z79.890 Hormone replacement therapy; Z79.899 Other long term (current) drug therapy; Z88.1 Allergy status to other antibiotic agents; Z88.5 Allergy status to narcotic agent; Z88.8 Allergy status to other drugs, medicaments and biological substances
CPT/HCPCS: 36415; 80053; 80178; 81001; 85025; 96360; 96361; 99284; J7030

== ENCOUNTER 2024-10-24 17:20 | Emergency (ER) | payer MEDICAID ==
[2024-10-24] MEDS ORDERED: Amoxicillin/Clavulanate K 875-125 MG Tab ONE (17:45)
[2024-10-24] MEDS ORDERED: traMADol 50 MG Tab ONE (17:45)
== END 2024-10-24 17:52 | disposition home or self-care (01) ==
LOC: LB.ED 17:20
DX: S02.5XXA Fracture of tooth (traumatic), initial encounter for closed fracture (principal); Z88.1 Allergy status to other antibiotic agents; Z88.8 Allergy status to other drugs, medicaments and biological substances; Z88.5 Allergy status to narcotic agent; Z88.6 Allergy status to analgesic agent; Z79.899 Other long term (current) drug therapy; X58.XXXA Exposure to other specified factors, initial encounter
CPT/HCPCS: 99282; A9270

== ENCOUNTER 2024-11-26 17:12 | Emergency (ER) | payer MEDICAID ==
[2024-11-26] MEDS: Bacitracin Oint 1 GM U/D Packet TOP ONE (17:56)
[2024-11-26] MEDS ORDERED: Amoxicillin 500 MG Cap ONE (18:00)
== END 2024-11-26 18:07 | disposition home or self-care (01) ==
LOC: LB.ED 17:12
DX: S61.452A Open bite of left hand, initial encounter (principal); I10 Essential (primary) hypertension; J45.909 Unspecified asthma, uncomplicated; K21.9 Gastro-esophageal reflux disease without esophagitis; E03.9 Hypothyroidism, unspecified; Z88.5 Allergy status to narcotic agent; Z88.1 Allergy status to other antibiotic agents; Z88.8 Allergy status to other drugs, medicaments and biological substances; Z79.51 Long term (current) use of inhaled steroids; Z79.890 Hormone replacement therapy; Z79.899 Other long term (current) drug therapy; W54.0XXA Bitten by dog, initial encounter
CPT/HCPCS: 99283; A9270-GY

== ENCOUNTER 2025-08-27 12:01 | Emergency (ER) | payer MEDICAID ==
[2025-08-27 12:51] LABS: BASOPHILS ABSOLUTE AUTO 0.04 K/uL (0.02-0.10); BASOPHILS PERCENT AUTO 0.4 % (0.0-0.5); EOSINOPHILS ABSOLUTE AUTO 0.24 K/uL (0.04-0.40); EOSINOPHILS PERCENT AUTO 2.2 % (1.0-5.0); LYMPHOCYTES ABSOLUTE AUTO 2.33 K/uL (1.50-4.00); LYMPHOCYTES PERCENT AUTO 21.6 % (20.0-40.0); MEAN PLATELET VOLUME 9.9 fL (6.0-10.0); MONOCYTES ABSOLUTE AUTO 0.99 K/uL (0.20-0.80); MONOCYTES PERCENT AUTO 9.2 % (3.0-10.0); NEUTROPHILS ABSOLUTE AUTO 7.20 K/uL (2.00-7.50); NEUTROPHILS PERCENT AUTO 66.6 % (45.0-70.0); PLATELET COUNT,PLT 362 K/uL (150-500); RED BLOOD CELL COUNT 3.93 M/uL (3.80-5.80); RED CELL DISTRIBUTION WIDTH 13.0 % (11.0-16.0); WHITE BLOOD CELL COUNT,WBC 10.8 K/uL (4.0-11.0)
[2025-08-27 13:04] LABS: BLOOD UREA NITROGEN,BUN 6.0 mg/dL (8-26); CARBON DIOXIDE,CO2 22.0 mmol/L (21.0-32.0); CHLORIDE,CL 105.0 mmol/L (98-107); CREATININE 0.75 mg/dL (0.55-1.02); EST CRCL DRUG DOSING (CG) 81.66 mL/min; ESTIMATED GFR 103.0 mL/min (>60); GLUCOSE RANDOM 106.0 mg/dL (74-100); POTASSIUM,K 4.0 mmol/L (3.5-5.1); SODIUM,NA 137.0 mmol/L (136-145)
== END 2025-08-27 13:39 | disposition home or self-care (01) ==
LOC: LB.ED 12:01
DX: J20.9 Acute bronchitis, unspecified (principal); I10 Essential (primary) hypertension; I25.2 Old myocardial infarction; F17.200 Nicotine dependence, unspecified, uncomplicated; E03.9 Hypothyroidism, unspecified; Z79.899 Other long term (current) drug therapy; Z79.890 Hormone replacement therapy; Z88.1 Allergy status to other antibiotic agents; Z88.5 Allergy status to narcotic agent; Z88.8 Allergy status to other drugs, medicaments and biological substances; Z88.6 Allergy status to analgesic agent
CPT/HCPCS: 36415; 71046; 80048; 85025; 85379; 87428-QW; 99285; A9270-GY

== ENCOUNTER 2025-08-27 18:26 | Emergency (ER) | payer MEDICAID ==
[2025-08-27] MEDS: Sodium Chloride 0.9% 50 ML SDV FLUSH ONE (18:55)
[2025-08-27] MEDS: Iopamidol 612 MG/ML 100 ML Bottle IV SCH (18:55)
[2025-08-27] MEDS: Ketorolac 30 MG/ML SDV IVPUSH ONE (19:05)
[2025-08-27] MEDS ORDERED: Sodium Chloride 0.9% 10 ML Syringe FLUSH PRN (19:19)
[2025-08-27 19:37] LABS: BASOPHILS ABSOLUTE AUTO 0.05 K/uL (0.02-0.10); BASOPHILS PERCENT AUTO 0.6 % (0.0-0.5); EOSINOPHILS ABSOLUTE AUTO 0.25 K/uL (0.04-0.40); EOSINOPHILS PERCENT AUTO 3.2 % (1.0-5.0); LYMPHOCYTES ABSOLUTE AUTO 3.25 K/uL (1.50-4.00); LYMPHOCYTES PERCENT AUTO 42.2 % (20.0-40.0); MEAN PLATELET VOLUME 9.7 fL (6.0-10.0); MONOCYTES ABSOLUTE AUTO 0.69 K/uL (0.20-0.80); MONOCYTES PERCENT AUTO 9.0 % (3.0-10.0); NEUTROPHILS ABSOLUTE AUTO 3.46 K/uL (2.00-7.50); NEUTROPHILS PERCENT AUTO 45.0 % (45.0-70.0); PLATELET COUNT,PLT 338 K/uL (150-500); RED BLOOD CELL COUNT 3.71 M/uL (3.80-5.80); RED CELL DISTRIBUTION WIDTH 13.0 % (11.0-16.0); WHITE BLOOD CELL COUNT,WBC 7.7 K/uL (4.0-11.0)
[2025-08-27 19:53] LABS: BLOOD UREA NITROGEN,BUN 7 mg/dL (8-26); CARBON DIOXIDE,CO2 22.4 mmol/L (21.0-32.0); CHLORIDE,CL 105 mmol/L (98-107); CREATININE 0.69 mg/dL (0.55-1.02); ESTIMATED GFR 112 mL/min (>60); GLUCOSE RANDOM 96 mg/dL (74-100); POTASSIUM,K 3.7 mmol/L (3.5-5.1); SODIUM,NA 138 mmol/L (136-145)
== END 2025-08-27 20:07 | disposition home or self-care (01) ==
LOC: LB.ED 18:26
DX: J18.9 Pneumonia, unspecified organism (principal); I10 Essential (primary) hypertension; I25.2 Old myocardial infarction; K21.9 Gastro-esophageal reflux disease without esophagitis; E03.9 Hypothyroidism, unspecified; Z79.899 Other long term (current) drug therapy; Z79.890 Hormone replacement therapy; Z88.1 Allergy status to other antibiotic agents; Z88.5 Allergy status to narcotic agent; Z88.6 Allergy status to analgesic agent; Z88.8 Allergy status to other drugs, medicaments and biological substances
CPT/HCPCS: 71275; 80048; 84145; 84484; 85025; 87040; 93005; 96365; 96375; 99285-25; A9270-GY; J0696; J1885; Q9967

== ENCOUNTER 2025-08-28 18:13 | Emergency (ER) | payer MEDICAID | END 2025-08-28 19:37 | disposition home or self-care (01) | LOC: LB.ED 18:13 | DX: J18.9 Pneumonia, unspecified organism (principal); I10 Essential (primary) hypertension; I25.2 Old myocardial infarction; J45.909 Unspecified asthma, uncomplicated; K21.9 Gastro-esophageal reflux disease without esophagitis; E03.9 Hypothyroidism, unspecified; Z79.899 Other long term (current) drug therapy; Z79.890 Hormone replacement therapy; Z88.1 Allergy status to other antibiotic agents; Z88.5 Allergy status to narcotic agent; Z88.6 Allergy status to analgesic agent; Z88.8 Allergy status to other drugs, medicaments and biological substances | CPT/HCPCS: 96372; 99284; J0696 ==

== ENCOUNTER 2025-09-17 07:30 | Emergency (ER) | payer MEDICAID ==
[2025-09-17] MEDS ORDERED: Sodium Chloride 0.9% 10 ML Syringe FLUSH PRN (08:16)
[2025-09-17 08:43] LABS: BASOPHILS ABSOLUTE AUTO 0.01 K/uL (0.02-0.10); BASOPHILS PERCENT AUTO 0.1 % (0.0-0.5); EOSINOPHILS ABSOLUTE AUTO 0.02 K/uL (0.04-0.40); EOSINOPHILS PERCENT AUTO 0.2 % (1.0-5.0); LYMPHOCYTES ABSOLUTE AUTO 3.09 K/uL (1.50-4.00); LYMPHOCYTES PERCENT AUTO 36.8 % (20.0-40.0); MEAN PLATELET VOLUME 9.7 fL (6.0-10.0); MONOCYTES ABSOLUTE AUTO 0.88 K/uL (0.20-0.80); MONOCYTES PERCENT AUTO 10.5 % (3.0-10.0); NEUTROPHILS ABSOLUTE AUTO 4.40 K/uL (2.00-7.50); NEUTROPHILS PERCENT AUTO 52.4 % (45.0-70.0); PLATELET COUNT,PLT 330 K/uL (150-500); RED BLOOD CELL COUNT 3.81 M/uL (3.80-5.80); RED CELL DISTRIBUTION WIDTH 13.1 % (11.0-16.0); WHITE BLOOD CELL COUNT,WBC 8.4 K/uL (4.0-11.0)
[2025-09-17 09:12] LABS: BLOOD UREA NITROGEN,BUN 13 mg/dL (8-26); CARBON DIOXIDE,CO2 23.2 mmol/L (21.0-32.0); CHLORIDE,CL 107 mmol/L (98-107); CREATININE 0.76 mg/dL (0.55-1.02); EST CRCL DRUG DOSING (CG) 80.58 mL/min; ESTIMATED GFR 101 mL/min (>60); GLUCOSE RANDOM 83 mg/dL (74-100); POTASSIUM,K 3.7 mmol/L (3.5-5.1); SODIUM,NA 140 mmol/L (136-145)
== END 2025-09-17 10:07 | disposition home or self-care (01) ==
LOC: LB.ED 07:30
DX: J40 Bronchitis, not specified as acute or chronic (principal); I10 Essential (primary) hypertension; I25.2 Old myocardial infarction; K21.9 Gastro-esophageal reflux disease without esophagitis; F17.200 Nicotine dependence, unspecified, uncomplicated; Z86.16 Personal history of COVID-19; Z79.899 Other long term (current) drug therapy; E03.9 Hypothyroidism, unspecified; Z79.890 Hormone replacement therapy
CPT/HCPCS: 36415; 71045; 71250; 80048; 85025; 85379; 86140; 87428-QW; 94640; 99285; A9270-GY; J7512